=== PATIENT | female | born 1970 | race Caucasian/White ===

== ENCOUNTER 2021-01-20 21:03 | Observation (INO) ==
[2021-01-21] MEDS ORDERED: Melatonin 3 MG TABLET PO PRN (00:02)
[2021-01-21] MEDS ORDERED: Ondansetron 4 MG/2 ML VIAL IVP PRN (00:02)
[2021-01-21] MEDS ORDERED: Acetaminophen 325 MG TABLET PO PRN (00:02)
[2021-01-21] MEDS ORDERED: Naloxone 0.4 MG/ML INJ IVP PRN (00:02)
[2021-01-21] MEDS ORDERED: 0.9 % Sodium Chloride 1,000 ML IVC ONE (02:56)
[2021-01-21] MEDS: Vancomycin 1,250 MG/262.5 ML IV.SOLN IVPB SCH ×2 (05:56→17:18)
[2021-01-21 06:17] LABS: Basophils # 0.1 K/mcL (0.0-0.2); Basophils % 0.9 %; Eosinophils # 0.3 K/mcL (0.0-0.6); Eosinophils % 3.9 %; Hematocrit 36.9 % (35.3-44.9); Hemoglobin 12.2 g/dL (11.5-15.4); Lymphocytes # 3.4 K/mcL (0.6-4.6); Lymphocytes % 50.9 %; Mean Corpuscular HGB Conc 33.1 g/dL (31.6-35.5); Mean Corpuscular Hemoglobin 31.9 pg (28.0-33.3); Mean Corpuscular Volume 96.6 fL (83.0-100.0); Mean Platelet Volume 11.7 fL (9.4-12.4); Monocytes # 0.6 K/mcL (0.0-1.3); Monocytes % 9.1 %; Neutrophils # 2.4 K/mcL (1.6-8.9); Platelet Count 199 K/mcL (140-400); Red Blood Count 3.82 M/mcL (3.82-4.97); Red Cell Distribution Width 12.1 % (11.5-14.5); Segmented Neutrophils % 35.2 %; White Blood Count 6.7 K/mcL (4.3-11.1)
[2021-01-21 06:22] LABS: Prothrombin Time 12.1 Seconds (9.4-12.1)
[2021-01-21 06:25] LABS: Activated Partial Thrombo Time 30.4 Seconds (26.0-36.0)
[2021-01-21 06:36] LABS: Alanine Aminotransferase 18 Units/L (7-52); Albumin 3.8 g/dL (3.5-5.7); Albumin/Globulin Ratio 1.9 (1.1-2.2); Alkaline Phosphatase 74 Units/L (34-104); Aspartate Amino Transferase 16 Units/L (13-39); BUN/Creatinine Ratio 18 (6-26); Bilirubin,Total 0.3 mg/dL (0.3-1.0); Blood Urea Nitrogen 14 mg/dL (6-20); Calcium 8.7 mg/dL (8.6-10.3); Carbon Dioxide 27 mEq/L (23-29); Chloride 107 mEq/L (98-107); Glucose 88 mg/dL (70-105); Magnesium 1.9 mg/dL (1.6-2.6); Osmolality,Calculated 288 (280-300); Phosphorous 4.1 mg/dL (2.7-4.5); Potassium 3.7 mEq/L (3.5-5.1); Sodium 139 mEq/L (136-145); Total Protein 5.8 g/dL (6.4-8.9); eGFR For African Americans > 60 (> 60); eGFR For Non-African Americans > 60 (> 60)
[2021-01-21] MEDS ORDERED: cefTRIAXone 1,000 MG in 0.9 % Sodium Chloride Mini Bag 100 ML IVPB SCH (09:00)
[2021-01-21] MEDS ORDERED: cefTRIAXone 1,000 MG in Water for inj. (sterile) 10 ML IVP SCH (09:00)
[2021-01-21] MEDS ORDERED: Baclofen 10 MG TABLET PO PRN (12:26)
[2021-01-21] MEDS: Venlafaxine XR (24 HR) 150 MG CAP.ER.24H PO SCH (12:34)
[2021-01-21] MEDS: Gabapentin 400 MG CAPSULE PO SCH ×2 (14:00→20:51)
[2021-01-21] MEDS ORDERED: traZODone 50 MG TABLET PO SCH (21:00)
[2021-01-21] MEDS: CeFAZolin 2 GM/120 ML BAG IVPB SCH (23:49)
[2021-01-22 02:35] LABS: BUN/Creatinine Ratio 17 (6-26); Blood Urea Nitrogen 13 mg/dL (6-20); Carbon Dioxide 26 mEq/L (23-29); Chloride 108 mEq/L (98-107); Glucose 94 mg/dL (70-105); Osmolality,Calculated 290 (280-300); Potassium 3.9 mEq/L (3.5-5.1); Sodium 140 mEq/L (136-145); eGFR For African Americans > 60 (> 60); eGFR For Non-African Americans > 60 (> 60)
[2021-01-22 07:25] VITALS: BP 105/70
[2021-01-22] MEDS: CeFAZolin 2 GM/120 ML BAG IVPB SCH (07:29)
[2021-01-22] MEDS: Gabapentin 400 MG CAPSULE PO SCH (07:30)
[2021-01-22] MEDS: Venlafaxine XR (24 HR) 150 MG CAP.ER.24H PO SCH (07:30)
[2021-01-22] MEDS ORDERED: Fluticasone Propionate Nasal 50 MCG/SPRAY BOTTLE NS SCH (09:00)
== END 2021-01-22 11:27 | disposition home or self-care (01) ==
LOC: 3NENU
PROVIDERS: ADMIT Internal Medicine; ATTEND Internal Medicine